=== PATIENT | male | born 1965 | race Caucasian/White ===

== ENCOUNTER → 2018-02-18 | Outpatient (CLI) | payer OTHER | LOC: ULTRA 16:00 | DX: M25.871 Other specified joint disorders, right ankle and foot (principal); M79.89 Other specified soft tissue disorders ==

== ENCOUNTER → 2019-06-11 | Outpatient (CLI) | payer OTHER | LOC: CAT 16:09 | DX: Z13.6 Encounter for screening for cardiovascular disorders (principal); E78.00 Pure hypercholesterolemia, unspecified; I25.10 Atherosclerotic heart disease of native coronary artery without angina pectoris ==